=== PATIENT | male | born 1940 | race Caucasian/White ===

== ENCOUNTER → 2017-04-10 | Outpatient (CLI) | payer OTHER ==
[~2017-04-10] MED LIST: ASPIRIN EC325 M1 PO; ASPIRIN81 M2 PO; CENTRUM SILVER1 EAC2 PO; COLACE100 MG PO; ELIQUIS2.5 MG PO; MEN'S 50+ DAIL1 EACH PO; MIRALAX17 GM PO; MIRALAX255 GM PO; OMEPRAZOLE40 MG PO; OXYCODONE HCL 55 MG PO; PAIN RELIEF PM1 EAC2 PO; SAW PALMETTO500 MG PAD; XARELTO10 M1 PO; ZOCOR40 MG PO
--- NOTE | 2017-04-19 20:58 | CON ---
[address] [address] CONSULTATION Name: ANDREW LOPEZ Room: [facility]#: [id number] Admission: 04/10/17 Attend Phys: Matt Lake MD Discharge: Date of : 44 Report #: [id number] THIS REPORT FOR: //name// CC: Matt Chris MD DATE OF SERVICE: 04/10/2017 RADIATION ONCOLOGY CONSULT NOTE REFERRING PHYSICIANS: Include Dr. Varun Mckeon and Dr. Darci Chris. [facility] phone is [phone]. PRIMARY SITE AND HISTOPATHOLOGY: The patient presents to be evaluated for radiation therapy prior to a total hip arthroplasty to prevent heterotopic bone formation. HISTORY OF PRESENT ILLNESS: The patient is a 76-year-old gentleman who had a right total hip arthroplasty in 2013. He has been doing well until recently when he started to have increasing pain in the left hip area. Dr. 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 PAST MEDICAL HISTORY AND PAST SURGICAL HISTORY: Includes a right hip arthroplasty on 04/04/2013 and he also has hyperlipidemia. MEDICATIONS: Simvastatin, omeprazole and a multivitamin. FAMILY HISTORY: Father had heart disease. SOCIAL HISTORY: The patient is retired. He had a daughter, (who ) and they have a son. Ethanol: He rarely drank alcohol containing beverages in the past. Cigarettes: The patient does not smoke. REVIEW OF SYSTEMS: GENERAL: The patient denied having any fevers or chills. SKIN: The patient denied having any color changes or itching. LYMPH NODES: The patient denied having any enlarged or painful glands. ENDOCRINE: The patient denied having any hot or cold intolerance. HEMATOLOGY/IMMUNOLOGY: The patient denied having any anemia. MUSCULOSKELETAL: The patient does have [place] [address] CONSULTATION Name: JESSICAANDREW M Room: [facility]#: [id number] Admission: 04/10/17 Attend Phys: Matt Lake MD Discharge: Date of : 44 Report #: [id number] in the left hip and he also has low back pain. HEAD AND NECK: The patient denied having any headaches. RESPIRATORY: He denied having any shortness of breath. CARDIOVASCULAR: The patient denied having any palpitations. GASTROINTESTINAL: The patient denied having any nausea. NEUROLOGIC: The patient denied having any focal weakness. PHYSICAL EXAMINATION: VITAL SIGNS: Height 5 feet 8 inches, weight 186.4 pounds, blood pressure 156/81, pulse 68, respirations 16. LYMPH NODES: He had no palpable cervical or supraclavicular lymphadenopathy. GENERAL PSYCHIATRIC: He was alert, oriented, in no acute distress. EYES: Pupils were equal, round, reactive to light and accommodation. Extraocular movements were intact. HEAD, EARS, NOSE AND THROAT: Mouth had no visible lesions. HEART: Had a regular rate and rhythm without murmur. LUNGS: were clear to auscultation. ABDOMEN: Not tender. Liver was at the costal margin NEUROLOGIC: Cranial nerves II to XII were intact. Sensation was intact. He had 5/5 strength throughout. EXTREMITIES: had no clubbing, cyanosis or edema. He good normal range of motion in the right hip. He does have some pain in the left hip area on weightbearing. ASSESSMENT AND PLAN: The patient is presenting for radiation therapy to prevent heterotopic bone formation in the left hip. The efficacy of radiation therapy to prevent heterotopic bone formation can be found in studies such as the one presented in the article entitled, "preoperative single fraction irradiation for prophylaxis of heterotopic ossification after total hip arthroplasty". One of the authors was Dr. Rodrigues. They gave a single preoperative fraction of radiation treatment within 16 hours of surgery and they found good results with only 6 out of 118 patients that developed arthroplasty after radiation therapy. Usually high risk patients have a risk of about 50-60% of developing heterotopic bone formation and in that study, that was reduced to about 5% with radiation therapy. So the risks, benefits and logistics of radiation therapy to the left hip area were discussed with the patient in detail. The patient gave his witnessed, informed consent to proceed with radiation therapy. Thank you very much for this consult. <ELECTRONICALLY SIGNED> By: Matt Lake MD 04/19/17 2058 1115 [id number] Lake MD /briseida
== END ==
LOC: M.RTH 01:54
DX: Z09 Encounter for follow-up examination after completed treatment for conditions other than malignant neoplasm (principal); M25.552 Pain in left hip; E78.5 Hyperlipidemia, unspecified; Z96.643 Presence of artificial hip joint, bilateral

== ENCOUNTER 2017-05-04 06:33 | Inpatient (IN) | payer OTHER ==
[2017-04-23 09:07] LABS: APTT 27.4 Seconds (25.0-31.3); INR 1.1; PROTIME 10.7 Seconds (9.20-11.50)
[~2017-05-04] VITALS: Ht 172.7 cm; Wt 81.6 kg
[~2017-05-04 06:33] MED LIST changes: -ELIQUIS2.5 MG PO
[2017-05-04 11:00] VITALS: BP 146/85
[2017-05-04 17:51] VITALS: BP 120/77
--- NOTE | 2017-05-04 17:55 | NUR ---
PATIENT TRANSFERRED FROM PACU TO ROOM 108. ALERT AND ORIENTED. DROWSY. DENIES PAIN. LIQUIDS PROVIDED. DRESSING TO LEFT HIP DRY AND INTACT. SCD'S AND TEDS IN PLACE. RA SAT 93%. CONT PULSE OX. ICE PACK TO HIP. BED ALARM SET. AT BEDSIDE. WILL CONTINUE TO MONITOR.
[2017-05-04 20:45] VITALS: BP 149/63
[2017-05-05 00:51] VITALS: BP 141/80
[2017-05-05 04:35] VITALS: BP 147/76
--- NOTE | 2017-05-05 05:20 | NUR ---
PATIENT ALERT AND ORIENTED. VITALS STABLE. RA. FLUIDS INFUSING PER ORDER. DENIES THE NEED FOR PAIN MEDICATION. DENIES NAUSEA. VOIDS PER URINAL. HOURLY ROUNDS. BED ALARM IN USE. NURSING WILL CONTINUE TO MONITOR.
[2017-05-05 08:42] VITALS: BP 136/76
[2017-05-05 09:40] LABS: CALCIUM 8.5 mg/dL (8.5-10.1); CREATININE 1.5 mg/dL (0.6-1.3)
[2017-05-05 13:09] LABS: HBsAG-EMPLOYEE EXPOSURE Negative (Negative)
--- NOTE | 2017-05-05 13:45 | NUR ---
CALLED IN PRESCRIPTION FOR ELIQUIS WRITTEN TO IVANNA COSTELLO [phone]. CM WILL CALL BACK TO GET COPAY INFORMATION.
--- NOTE | 2017-05-05 14:40 | NUR ---
PT.UP IN CHAIR. STATED HE LIVES WITH HIS . SHE WILL BE WITH HIM AT DISCHARGE AND CAN ASSIST HIM NEEDED. HE HAS A FRONT WHEEL WALKER. IS NORMALLY INDEPENDENT. PHARMACY IS [facility]. CM WILL FOLLOW. HE HOPES TO GO HOME TOMORROW.
[2017-05-05 15:17] VITALS: BP 136/76
--- NOTE | 2017-05-05 16:04 | NUR ---
PATIENT REMAINS ALERT AND ORIENTED. PAIN CONTROLLED WITH OXYIR. AMBULATES WITH STANDBY ASSIST. VSS. RA. SAT 99%. DRESSING TO HIP DRY AND INTACT. TEDS/SCD'S IN PLACE. UP TO CHAIR THIS AFTERNOON. IV REMOVED THIS AFTERNOON PER PATIENT REQUEST. CALL LIGHT WITHIN REACH. WILL CONTINUE TO MONITOR.
[2017-05-05 21:15] VITALS: BP 153/77
[2017-05-05 23:32] VITALS: BP 163/84
[2017-05-06 04:09] VITALS: BP 172/86
[2017-05-06 04:18] LABS: HEMATOCRIT 41.6 % (42.0-52.0); HEMOGLOBIN 14.3 gm/dL (14.0-18.0); MCH 33.9 pg (26.0-34.0); MCHC 34.3 g/dL (28.0-37.0); MCV 98.9 fL (80.0-100.0); MPV 9.8 fl. (7.2-11.1); NUCLEATED RBCS 0 /100WBC; PLATELET COUNT* 132 thou/uL (150-400); RBC 4.21 mil/uL (4.50-6.00); RDW-CV 12.8 % (10.5-14.5); WBC 17.9 thou/uL (4.0-11.0)
--- NOTE | 2017-05-06 05:39 | NUR ---
PATIENT ALERT AND ORIENTED. VITALS STABLE. RA. UP WITH ASSIST X 1 TO BATHROOM. PAIN CONTROLLED WITH PO MEDICATION. VOIDING PER URINAL. HOURLY ROUNDS. BED ALARM IN USE. NURSING WILL CONTINUE TO MONITOR.
[2017-05-06 06:58] LABS: ABSOLUTE LYMPHOCYTES 1.4 thou/uL (0.8-5.3); ABSOLUTE MONOCYTES 1.4 thou/uL (0.0-1.2); PLATELET ESTIMATE ADEQUATE
[2017-05-06 08:15] VITALS: BP 149/76
[2017-05-06 11:30] VITALS: BP 136/76
[2017-05-06] MEDS ORDERED: OXYCODONE HCL 55 MG PO (11:40)
[2017-05-06] MEDS ORDERED: ELIQUIS2.5 MG PO (11:54)
[2017-05-06 13:20] VITALS: BP 136/76
--- NOTE | 2017-05-06 13:42 | NUR ---
PATIENT LEFT UNIT AT 1300 BY WHEELCHAIR WITH NURSING STAFF. IV DC'D. EDUCATED PATIENT AND ON DISCHARGE INSTRUCTIONS AND NEW MED SCRIPTS. PATIENT AND VERBALIZED UNDERSTANDING. ALL BELONGINGS LEFT WITH PATIENT.
--- NOTE | 2017-05-06 16:56 | NUR ---
COPAY FOR JHONY AT [facility] WAS $195. JUSTINO BRODY INFORMED PT. AND SHE SAID HE WAS OK WITH THAT AMOUNT.
--- NOTE | 2017-05-08 14:03 | S ---
[place] [address] SURGICAL PATH RPT PROCEDURE Name: OSEAS KURTZ Room: [address] IN [facility].#: [id number] Admission: 05/04/17 Date of : 44 Discharge: 05/06/17 Report #: [id number] Path Case #: [id number] PATHOLOGY REPORT COLLECTION DATE: 05/04/2017 RECEIVED DATE: 05/05/2017 SUBMITTING PHYS: Dr. Varun Mckeon OTHER PHYS: Dr. Brandon Chris DO SPECIMEN(S) RECEIVED: A.Left hip bone and tissue R/O osteoid osteoma * * * * * * * * * * * * FINAL DIAGNOSIS: Left hip bone and tissue: - Benign femoral head tissues including hematopoietic elements with: - Mild nonspecific chronic synovitis, benign skeletal muscle and benign dense fibrous connective tissue with chondroid metaplasia and focal dystrophic calcification. See comment. (HANSA:ana; 05/06/2017) PATHOLOGIST: Jonathan Appiah M.D. REPORT ELECTRONICALLY SIGNED BY: Jonathan Appiah M.D. DATE/TIME: 05/08/2017 14:02 * * * * * * * * * * * * GROSS PATHOLOGY: Received in formalin labeled "Oseas Kurtz, left hip bone and tissue," is a femoral head measuring 4.6 x 4.6 x 2.8 cm in greatest dimensions. The articular surface is macdonald-brown, granular, and irregular. Sectioning the bone reveals red-yellow cut surfaces. Also received are multiple fragments of soft tissue and bone reamings measuring 8.5 x 4.0 x 2.0 cm in aggregate dimensions. The head is sectioned thru multiple poles and there is noevidence of an osteoid osteoma. [employer] tissue is submitted in cassettes A1-A2, following decalcification and a gross photo is taken. (SDY; 05/05/2017) CLINICAL HISTORY: Degenerative joint disease left hip Rule out osteoid osteoma INITIAL CPT CODE(S): A; [address], [address] [place] [address] SURGICAL PATH RPT PROCEDURE Name: OSEAS KURTZ Room: [address] IN M.R.#: [id number] Admission: 05/04/17 Date of : 44 Discharge: 05/06/17 Report #: [id number] Path Case #: [id number] Professional services performed by [employer] at [facility] [address] [place] [address] Technical services performed by [employer] at [address] [place] [address], [address], [place] [address]. [facility] [place] [address] PHONE: [phone] DIRECTOR: Casa Rao M.D. * * * END OF REPORT * * *
--- NOTE | 2017-05-21 07:56 | OP ---
[address] [address] OPERATIVE REPORT Name: ANDREW LOPEZ Aaron Room: [address]#: [id number] Admission: 05/04/17 Attend Phys: Barbra Sorto Discharge: 05/06/17 Date of : 44 Report #: [id number] THIS REPORT FOR: //name// CC: Darci Morgan DICTATED BY: Trenton Mace DO DATE OF SERVICE: 05/04/2017 PREOPERATIVE DIAGNOSIS: Advanced degenerative joint disease, left hip. POSTOPERATIVE DIAGNOSIS: Advanced degenerative joint disease, left hip. PROCEDURE PERFORMED: Left total hip arthroplasty. PRIMARY SURGEON: Varun Mckeon DO SEMAPHORE OPERATOR: Trenton Mace DO SECOND FLOORWORKER LASTING: . ANESTHESIA: General with ET tube with local capsular block. ESTIMATED BLOOD LOSS: 400 mL FLUIDS: LR. DRAINS: None. SPECIMENS: Femoral head. COMPLICATIONS: None. IMPLANTS: Biomet total hip arthroplasty system size 12, femoral stem high offset 56 mm G7 finned acetabular shell, 28 mm head with a 44 mm dual mobility bearing, -3 neck, two 6.5 mm acetabular screws size 25 and 30 in length. CONDITION: Stable to PACU. INDICATIONS FOR PROCEDURE: This is a 76-year-old male who has been seen multiple times in our clinic regarding his left hip pain. Unfortunately, he is no longer responding to conservative treatment including activity modification, anti-inflammatories, weight loss. He presents today for the above mentioned procedure. Risks, benefits, complications and [place] [address] OPERATIVE REPORT Name: ANDREW LOPEZ Room: [address] IN [facility].#: [id number] Admission: 05/04/17 Attend Phys: Barbra Sorto Discharge: 05/06/17 Date of : 44 Report #: [id number] reviewed and discussed with him. On his prior arthroplasty of his right hip, he did develop some HO. He has been seen and treated by Radiation Oncology this morning with preoperative radiation. DESCRIPTION OF PROCEDURE: The patient was taken to the operating suite, placed supine on a traction table. He was given the benefit of general anesthetic and prepped and draped in the usual sterile fashion. Both feet were secured in leg holders. Prior to procedure, timeout was taken confirming correct site, patient and procedure. The procedure began with approximately 8 cm longitudinal incision centered over the tensor fascia sudhir muscle. Dissection was carried down to the tensor fascia. This was incised longitudinally. The interval between the tensor and sartorius was developed. Deep fascia was exposed. The circumflex vessels were seen and these were cauterized with Aquamantys. The joint capsule was then exposed. Appropriate retractors were placed. Capsule was treated with Aquamantys. H-capsulectomy was performed exposing our femoral head and neck. There was advanced degenerative changes and osteophytes seen within the femoral head and neck. Oscillating saw was used to perform a neck cut. This was approximately 1 cm superior to the lesser trochanter. Neck and residual head were removed. All excess osteophytes and labrum were removed off the acetabulum and soft tissue and synovium was removed as well. A 55 mm reamer was inserted and reaming was performed under C-arm to appropriate level and depth. There was a small area of fovea still remaining from my reaming. This was backfilled with bone graft. We then placed our 56 mm acetabular shell and secured with a good fit. Two acetabular screws were placed as well followed by the dual mobility acetabular liner metal liner. This was impacted in place and seated well. It was flushed circumferentially around the acetabular cup. C-arm was brought in to confirm our acetabular shell placement. The leg was externally rotated to approximately 120 degrees. Appropriate retractors placed and the leg was brought into extension and adduction exposing our femoral neck and canal. Posterior capsule was released. A box osteotome, rattail rasp were used to access femoral canal. Broaching was done sequentially up to a size 12. This was then trialed. Leg lengths were symmetrical on C-arm imaging. The leg was taken through range of motion and found to be stable in all planes. Trial stem and liner were removed. The canal was thoroughly irrigated. Vancomycin powder 2 g was placed within the wound. The final size 12 stem was malleted into place. Final head and liner were placed as well engaging the Huff taper. The hip was then reduced. C-arm was brought in for final images with orthogonal views. All implants appeared in good alignment and leg lengths symmetrical. A local capsular block was performed. Wound was thoroughly irrigated. Tensor fascia was reapproximated with a running Quill suture. The deep tissue closed with running 2-0 Monocryl followed by 2-0 Monocryl interrupted subcutaneously and a running 3-0 V-Loc subcutaneously as well. Dermabond glue for skin. The [address] [address] OPERATIVE REPORT Name: ANDREW LOPEZ Room: [address] IN [facility].#: [id number] Admission: 05/04/17 Attend Phys: Barbra Sorto Discharge: 05/06/17 Date of : 44 Report #: [id number] patient tolerated the procedure well and was transferred to PACU in good stable condition. All sponge, needle counts were correct x 2. <ELECTRONICALLY SIGNED> By: Varun Mckeon DO 05/21/17 0756 1626 [id number] Mckeon DO /briseida
== END 2017-05-06 13:49 | disposition home or self-care (01) | DRG 470 ==
LOC: M.PRE 06:33 → M.TBA 10:41 → M.ORTHSURG 10:41 → M.PRE 10:41 → M.ORTHSURG 16:27
PROVIDERS: Orthopaedic Surgery; Specialist; ADMIT Internal Medicine
PROC: 0SRB04Z Replacement of Left Hip Joint with Ceramic on Polyethylene Synthetic Substitute, Open Approach (ICD-10-PCS; principal; 2017-05-04)
DX: M16.12 Unilateral primary osteoarthritis, left hip (principal); E78.00 Pure hypercholesterolemia, unspecified; Z96.641 Presence of right artificial hip joint; E78.5 Hyperlipidemia, unspecified; Z88.8 Allergy status to other drugs, medicaments and biological substances

== ENCOUNTER → 2017-06-24 | Outpatient (CLI) | payer OTHER ==
[~2017-06-24] MED LIST changes: +ELIQUIS2.5 MG PO
--- NOTE | 2017-07-05 00:35 | ONC ---
[address] [address] RADIATION ONCOLOGY NOTE Name: ANDREW LOPEZ Room: [facility]#: [id number] Admission: 06/24/17 Attend Phys: Matt Lake MD Discharge: Date of : 44 Report #: [id number] THIS REPORT FOR: //name// CC: Matt Lake FAM unknown KADIE MCKEON DO DATE OF SERVICE: 06/24/2017 REFERRING PHYSICIANS: Include: 1. Varun Mckeon DO 2. Kadie Chris MD [facility] phone is [phone]. PRIMARY SITE AND HISTOPATHOLOGY: The patient received prophylactic radiation therapy to the left hip area to prevent heterotopic bone formation on 05/04/2017 and then he went on to undergo a total left hip arthroplasty. The patient received the radiation therapy preoperatively. INTERVAL NOTE: The patient felt like he was walking fine. He is walking without assistance. He denied having significant pain in the hip at this point and he has an appointment with his orthopedic surgeon, Dr. Mckeon on 07/02/2017. SOCIAL HISTORY: Cigarettes: The patient does not smoke. REVIEW OF SYSTEMS: MUSCULOSKELETAL: He has good range of motion in his lower extremities. GASTROINTESTINAL: He has a good appetite. PHYSICAL EXAMINATION: VITAL SIGNS: The patient weighed 180.4 pounds on 06/24/2017 and weighed 186.4 pounds on 04/10/2017. On 06/24/2017, pulse was 72, blood pressure 149/78, respirations 20, oxygen saturation 95%. HEART: Had a regular rate and rhythm without murmur. LUNGS: were clear to auscultation. EXTREMITIES: The patient has 5/5 strength in his lower extremities with good range of motion in his lower extremities. LABORATORY DATA: From 06/19/2017, sodium 141, potassium 4.3, BUN 15, creatinine 1.2. White blood cell count 6.4, hemoglobin 13.6, platelets 173,000. ASSESSMENT AND PLAN: 1. Total left hip arthroplasty -- the [place] [address] RADIATION ONCOLOGY NOTE Name: JESSICAANDREW Room: [facility]#: [id number] Admission: 06/24/17 Attend Phys: Matt Lake MD Discharge: Date of : 44 Report #: [id number] preoperative radiation therapy and total hip arthroplasty. He has an appointment with his orthopedic surgeon, on 07/02/2017. He has no further followup appointment scheduled with me. 2. Urinary hesitancy -- the patient takes tamsulosin and that is managed by his referring physician. 3. Hip pain- The patient's hip pain has dramatically improved after his left hip arthroplasty and he is walking without assistance. Thank you for allowing me to participate in the care of this patient. <ELECTRONICALLY SIGNED> By: Matt Lake MD 07/05/17 0035 0959 1107MD marko Cardona
== END ==
LOC: M.RTH 02:28
DX: M25.552 Pain in left hip (principal); R39.11 Hesitancy of micturition; Z96.642 Presence of left artificial hip joint